=== PATIENT | female | born 1970 | race Two or more races ===

== ENCOUNTER 2022-04-09 20:16 | Emergency (ER) | payer MEDICAID ==
[~2022-04-09] VITALS: Ht 157.5 cm; Wt 71.0 kg
[~2022-04-09 20:16] MED LIST: ALBU05
[2022-04-09 21:17] VITALS: BP 161/76
[2022-04-10] MEDS ORDERED: IBUPROFEN 400MG TABLET PO ONE (04:00)
== END 2022-04-10 04:15 | disposition home or self-care (01) ==
LOC: ER 20:16
DX: N64.4 Mastodynia (principal); R92.8 Other abnormal and inconclusive findings on diagnostic imaging of breast; J45.909 Unspecified asthma, uncomplicated
CPT/HCPCS: 99282

== ENCOUNTER 2023-10-08 06:11 | Emergency (ER) | payer MEDICAID ==
[~2023-10-08] VITALS: Ht 157.5 cm; Wt 66.0 kg
[2023-10-08 06:16] VITALS: O2SAT 99
[2023-10-08] MEDS ORDERED: FAMOTIDINE 20MG TABLET PO ONE (06:45)
[2023-10-08 07:33] LABS: BASOPHILS % 0.4 % (0.0-2.0); EOSINOPHILS % 0.7 % (0.0-5.0); HEMOGLOBIN. 13.3 g/dL (12.0-16.0); LYMPHOCYTES % 38.3 % (20.0-50.0); MEAN CORPUSCULAR HEMOGLOBIN 31.2 pg (28.0-32.0); MEAN CORPUSCULAR HGB CONC 34.2 g/dL (31.0-37.0); MEAN PLATELET VOLUME 9.4 fl (7.4-10.4); MONOCYTES % 6.5 % (2.0-8.0); NEUTROPHILS % 54.1 % (40.0-76.0); PLATELET 216 x1000/uL (130-400); RED BLOOD CELL COUNT 4.28 mill/uL (4.2-5.4); RED CELL DISTRIBUTION WIDTH 13.3 % (11.6-14.6); WHITE BLOOD COUNT 7.2 x1000/uL (4.5-11.0)
[2023-10-08 07:41] LABS: CHLORIDE 109 mEq/L (98-107); POTASSIUM 3.7 mEq/L (3.5-5.1); SODIUM 143 mEq/L (136-145)
[2023-10-08 07:42] LABS: CARBON DIOXIDE 27 mEq/L (21-32)
[2023-10-08 07:43] LABS: CALCIUM 9.5 mg/dL (8.7-10.4)
[2023-10-08 07:47] LABS: CREATININE 0.7 mg/dL (0.6-1.0); GLUCOSE 87 mg/dL (70-105)
[2023-10-08 07:48] LABS: UREA NITROGEN BLOOD 14 mg/dL (9-23)
[2023-10-08 07:49] LABS: ALANINE AMINOTRANSFERASE 21 IU/L (10-49); ALBUMIN 4.1 g/dL (3.2-4.8); ASPARTATE AMINOTRANSFERASE 18 IU/L (<34)
[2023-10-08 07:50] LABS: BILIRUBIN DIRECT 0.3 mg/dL (<=3.0); BILIRUBIN TOTAL 0.9 mg/dL (0.1-1.0); PROTEIN TOTAL 6.5 g/dL (6.0-8.3)
[2023-10-08 07:51] LABS: HCG SCREEN NEGATIVE
[2023-10-08 07:58] LABS: TROPONIN I HIGH SENSITIVITY < 4 ng/L (3.0-34)
[2023-10-08] MEDS ORDERED: FAMO-135 PO (08:21)
[2023-10-08] MEDS ORDERED: SUCR1TAB30 MT (08:21)
[2023-10-08] MEDS ORDERED: FAMOTIDINE 20MG TABLET PO NR (08:30)
[2023-10-08] MEDS: SUCRALFATE 1G TABLET PO SCH (08:48)
[2023-10-08] MEDS: FAMOTIDINE 20MG TABLET PO NR (08:48)
[2023-10-08 08:49] VITALS: BP 128/74; PULSE 60; RESP 16; TEMP 98.3
== END 2023-10-08 08:49 | disposition home or self-care (01) ==
LOC: ER 06:11
DX: R10.13 Epigastric pain (principal); J45.909 Unspecified asthma, uncomplicated; Z87.11 Personal history of peptic ulcer disease
CPT/HCPCS: 36415; 76705; 80048; 80076; 84484; 84703; 85025; 99284

== ENCOUNTER 2024-01-21 03:13 | Emergency (ER) | payer MEDICAID ==
[~2024-01-21] VITALS: Ht 157.5 cm; Wt 66.0 kg
[~2024-01-21 03:13] MED LIST changes: +FAMO-135 PO; +SUCR1TAB30 MT
[2024-01-21 03:43] VITALS: TEMP 98.5; O2SAT 98
[2024-01-21] MEDS ORDERED: IBUP-2029 MT (05:53)
[2024-01-21] MEDS ORDERED: GUAI5LIQ PO (05:55)
[2024-01-21 06:06] VITALS: BP 137/83; PULSE 64; RESP 16; O2SAT 99
== END 2024-01-21 06:07 | disposition home or self-care (01) ==
LOC: ER 03:13
DX: U07.1 COVID-19 (principal); J45.909 Unspecified asthma, uncomplicated
CPT/HCPCS: 71045; 87426; 87804; 99284